=== PATIENT | male | born 1965 | race Caucasian/White ===

== ENCOUNTER → 2025-03-15 14:10 | Outpatient (REF) | payer OTHER, SELFPAY | LOC: RAD 14:10 | PROVIDERS: ATTENDING PHYSICIAN Physician Assistant; FAMILY PHYSICIAN Family Medicine | DX: M79.5 Residual foreign body in soft tissue (principal) | CPT/HCPCS: 73060 ==

== ENCOUNTER → 2025-07-05 08:06 | Outpatient (REF) | payer OTHER, SELFPAY | LOC: HWRCS 08:06 | PROVIDERS: ATTENDING PHYSICIAN Internal Medicine; FAMILY PHYSICIAN Family Medicine | DX: I10 Essential (primary) hypertension (principal); I77.810 Thoracic aortic ectasia | CPT/HCPCS: 93306 ==

== ENCOUNTER → 2025-08-22 08:27 | Outpatient (REF) | payer OTHER, SELFPAY | LOC: MRI 08:27 | PROVIDERS: ATTENDING PHYSICIAN Internal Medicine; FAMILY PHYSICIAN Family Medicine | DX: I77.810 Thoracic aortic ectasia (principal); Q21.0 Ventricular septal defect | CPT/HCPCS: 75561; 75565; A9585 ==